=== PATIENT | male | born 1965 | race Caucasian/White ===

== ENCOUNTER 2016-07-16 09:14 | Emergency (ER) | payer OTHER ==
[~2016-07-16] VITALS: Ht 188 cm; Wt 169.9 kg
[2016-07-16] MEDS ORDERED: NAPROXEN500 MG PO (12:29)
[2016-07-16 13:39] VITALS: BP 123/78
== END 2016-07-16 13:39 | disposition home or self-care (01) ==
LOC: EME 09:14
DX: S80.01XA Contusion of right knee, initial encounter (principal); S83.411A Sprain of medial collateral ligament of right knee, initial encounter; W18.30XA Fall on same level, unspecified, initial encounter; Y99.0 Civilian activity done for income or pay; Z87.891 Personal history of nicotine dependence
CPT/HCPCS: 73564; 99281; 99283